=== PATIENT | female | born 1990 | race Caucasian/White ===

== ENCOUNTER 2020-10-15 09:40 | Inpatient (IN) | payer OTHER ==
[~2020-10-15] VITALS: Ht 154.9 cm; Wt 89.4 kg
[~2020-10-15 09:40] MED LIST: PRENATA CHEWAB1 EACH; [UNRECOGNIZED DRUG - OTHER] PO
--- NOTE | 2020-10-16 08:49 | NUR ---
10/16/20 0849 Julieta Lucio 0841-PATIENT ARRIVED BACK TO ROOM 104 FOR RECOVERY. PATIENT AWAKE DENIES PAIN OR NAUSEA. RR EVEN RA 99% FUNDUS AT UMBILICUS TO RIGHT FIRM. LIGHT RUBRA DRAINAGE. SIN CATHETER DRAINING YELLOW URINE. IVF INFUSING LR WITH 20 PITOCIN IV SITE CDI TO LEFT HAND. 0849-PATIENT FEEDING BABY TO BREAST VANDA ALFAROC RN ASSISTING DAD AT BEDSIDE.
--- NOTE | 2020-10-17 08:36 | PR ---
[facility] [address] [place] [address] Signed PP Progress Notes Datetime Report Generated by CPN: 10/17/2020 08:36 SUBJECTIVE: [id number] Pain: Within Normal Limits Nausea/Vomiting: Denies Vital Signs: [id number] Vital Signs: Reviewed; Within Normal Limits Notable Details: PP Hgb/Hct = 11.9/35.6 Abdomen/Uterus: Normal Lochia: Normal Extremities: Normal Incision: Normal IMPRESSION/PLAN/PROCEDURES: [id number] Impression: Normal Progression Plan: Continue Present Management Procedures: None Progress Notes: Doing well, without complaint, will have Reeder removed today and increae activity Signing Physician: Carlee Riley MD Copies: ~ *Electronically Signed* 10/17/20 0836 CARLEE RILEY MD PATIENT NAME: KIERAN WRIGHT PROGRESS NOTE DATE OF : [birth year] PHYSICIAN: CARLEE RILEY MD RPT #: [id number] REPORT IS CONFIDENTIAL AND NOT TO BE RELEASED WITHOUT AUTHORIZATION
--- NOTE | 2020-10-18 08:08 | PR ---
[facility] [address] [facility] [place], [place] [address] Signed PP Progress Notes Datetime Report Generated by CPN: 10/18/2020 08:08 SUBJECTIVE: [id number] Pain: Within Normal Limits Nausea/Vomiting: Denies Flatus: Yes Bowel Movement: No Vital Signs: [id number] Vital Signs: Reviewed; Within Normal Limits Notable Details: PP Hgb/Hct = 11.9/35.6 Cardiovascular: Normal Respiratory: Normal Abdomen/Uterus: Normal Lochia: Normal Vulva/Perineum: Not Done Breasts: Not Done CVA Tenderness: Normal Extremities: Normal Incision: Normal Progress: Normal Exam Comments: Fundus firm U-2 nontender. Incision healing well. IMPRESSION/PLAN/PROCEDURES: [id number] Impression: Normal Progression Plan: Remove [place]; Discharge Procedures: None Progress Notes: Pt seen and examined. Doing well. Ambulating, voiding, and tolerating full diet. Pain and lochia minimal. Breast feeding well. No fevers/chills or other concerns. Desires d/c home. Planning IUD pp contraception. Reviewed d/c instructions in detail. Signing Physician: Roly Hallman DO Copies: ~ *Electronically Signed* 10/18/20 0808 ROLY HALLMAN DO PATIENT NAME: KIERAN WRIGHT PROGRESS NOTE DATE OF : 90 PHYSICIAN: ROLY HALLMAN DO RPT #: [id number] REPORT IS CONFIDENTIAL AND NOT TO BE RELEASED WITHOUT AUTHORIZATION
--- NOTE | 2020-10-20 08:54 | OR ---
[facility] [address] [place], [place] [address] Signed DATE OF OPERATION: 10/16/2020 SURGEON: Dano Riley MD Patient of Dr. Riley. PREOPERATIVE DIAGNOSIS: Term , previous section x2. POSTOPERATIVE DIAGNOSIS: Term , previous section x2. PROCEDURE: Repeat low transverse segment section, delivery of live female . SALESPERSON HOUSEHOLD APPLIANCES: Dr. Hallman. ANESTHESIA: Spinal. ESTIMATED BLOOD LOSS: 500 mL. COMPLICATIONS: None. DRAINS: Reeder to bladder. FINDINGS: Live female infant, Apgars 8 and 9, weight 6 pounds 1 ounce. Normal uterus with elevated bladder flap. No other adhesions. Normal tubes and ovaries bilateral. DESCRIPTION OF PROCEDURE: The patient was brought into the operating room, placed in supine position. After adequate spinal anesthesia was obtained, was prepped and draped in usual sterile fashion. Reeder catheter was placed in the bladder. A Pfannenstiel skin incision was made with a scalpel through previous surgical scar. Subcutaneous tissue was dissected with Bovie and scalpel. The fascia was nicked with scalpel and extended in transverse Electronically Signed By: DANO RILEY MD 10/20/20 0854 PATIENT NAME: KIERAN WRIGHT OPERATIVE REPORT DATE OF : [birth year] REPORT #: [id number] PHYSICIAN: DANO RILEY MD PCP: NO PRIMARY CARE PHYSICIAN REPORT IS CONFIDENTIAL AND NOT TO BE RELEASED WITHOUT AUTHORIZATION [facility] [address] [place], [place] [address] Signed fashion using curved scissors. The underlying abdominal musculature was bluntly and sharply from the fascia above and below the incision. The abdominal musculature was along the midline. Peritoneum nicked with scissors and extended in a vertical fashion using curved scissors. The bladder flap was noted to be somewhat elevated, so Metzenbaum scissors and pickups with teeth used to gently elevate the peritoneum, which was then opened over the lower uterine segment in the transverse fashion and gently pushed down to better expose the lower uterine segment with bladder further down. The lower uterine segment was carefully nicked with scalpel and large amount of clear fluid came from the incision. The incision was extended in transverse fashion using finger dissection. The infant's head was noted to be in vertex MARISOL presentation. The 's head easily delivered from the incision. The cord was doubly clamped and cut and the passed off the table in good condition to awaiting nurse. True knot was noted in the cord. The placenta was manually removed and uterine cavity explored a lap pad to remove any retained membranes. An angle stitch of 0 Monocryl was placed at one end of the incision and running locking stitch of 0-Monocryl starting at the other end used to close the incision. A 2nd running stitch of 0 Monocryl was used to imbricate the 1st layer. There was small hematoma at the right angle. This was controlled with a simple stitch of 0 Monocryl just lateral to the small hematoma placed while keeping finger behind the broad ligament to avoid injuring any bowel or vessels and staying against the uterus to avoid the ureter and a 2nd [id number] stitch was placed in the same fashion just proximal to the hematoma. This did control the hematoma. It was less than 2 cm diameter, soft, and did not expand at all through the rest of the case. When the entire pelvis was irrigated, suctioned, and examined, any superficial bleeding spots cauterized with the Bovie. The Eliezer self-retaining retractor was removed and sheet of ACell placed over the lower uterine segment. Again, the hematoma was unchanged and appeared to be resolved. The anterior wall peritoneum was then closed using running stitch of 2-0 Vicryl suture. The abdominal musculature was reapproximated using interrupted stitches of 0 Vicryl suture. The abdominal wall incision was irrigated, suctioned, and examined, and any bleeding spots cauterized with the Bovie. Powdered ACell sprinkled over the abdominal musculature to help with healing. The fascia was then closed using 2 running stitches of 0 Vicryl suture meeting in the midline. Subcutaneous tissue was irrigated, suctioned, and examined, and any bleeding spots were cauterized with the Bovie. Subcutaneous tissue was closed using interrupted stitches of 3-0 Vicryl suture and the skin reapproximated using skin clips. The patient tolerated the procedure well, went to recovery room in good condition. The sponge, needle, and instrument count were correct at the end of the procedure. Dano Riley MD Electronically Signed By: DANO RILEY MD 10/20/20 0854 PATIENT NAME: KIERAN WRIGHT OPERATIVE REPORT DATE OF : 90 REPORT #: [id number] PHYSICIAN: DANO RILEY MD PCP: NO PRIMARY CARE PHYSICIAN REPORT IS CONFIDENTIAL AND NOT TO BE RELEASED WITHOUT AUTHORIZATION [address] [address] Signed B/MOD /[id number] Copies: ~ Electronically Signed By: DANO RILEY MD 10/20/20 0854 PATIENT NAME: KIERAN WRIGHT OPERATIVE REPORT DATE OF : [birth year] REPORT #: [id number] PHYSICIAN: DANO RILEY MD PCP: NO PRIMARY CARE PHYSICIAN REPORT IS CONFIDENTIAL AND NOT TO BE RELEASED WITHOUT AUTHORIZATION
== END 2020-10-18 13:30 | disposition home or self-care (01) | DRG 788 ==
LOC: FBC 10-16 05:05
PROVIDERS: ADMIT General Practice; ATTEND General Practice
PROC: 10D00Z1 Extraction of Products of Conception, Low, Open Approach (ICD-10-PCS; principal; 2020-10-16 06:45)
PROC: 3E0234Z Introduction of Serum, Toxoid and Vaccine into Muscle, Percutaneous Approach (ICD-10-PCS; 2020-10-17)
DX: O34.211 Maternal care for low transverse scar from previous cesarean delivery (principal); N85.8 Other specified noninflammatory disorders of uterus; Z37.0 Single live birth; O32.2XX0 Maternal care for transverse and oblique lie, not applicable or unspecified; O26.893 Other specified pregnancy related conditions, third trimester; Z3A.39 39 weeks gestation of pregnancy; Z67.41 Type O blood, Rh negative; Z88.2 Allergy status to sulfonamides; Z79.82 Long term (current) use of aspirin
CPT/HCPCS: 01961; 36415; 83030; 85027; 86850; 86900; 86901; A9270; J0690; J2001; J2274; J2300; J2370; J2405; J2590; J2765; J2790; J3010; J7121